=== PATIENT | male | born 1995 | race Caucasian/White ===

== ENCOUNTER 2018-07-17 11:41 | Day surgery (SDC) | payer BC ==
[2018-07-16 12:52] VITALS: BMI 34.4
[~2018-07-17 11:41] MED LIST: DEXAMETHASONE SOD PHOSPHATE 10 MG/ML 1 ML VIAL IV ONE; HYDROmorphone 1 MG/ML 1 ML SYRINGE IVP PRN; LIDOCAINE 1% 20 ML VIAL (10MG/ML) FOR IV START INTRADERMA PRN; MIDAZOLAM 2 MG/2 ML VIAL IV PRN; ONDANSETRON 4 MG/2 ML VIAL IVP ONE; SCOPOLAMINE 1.5MG/72HR PATCH TRANSDERM ONE; ceFAZolin IN SWFI 2 GM/20 ML SYRINGE IVP ONE
[2018-07-17] MEDS: LACTATED RINGERS 1,000 ML IV SCH ×2 (12:13→12:55)
[2018-07-17] MEDS ORDERED: fentaNYL (PF) 50 MCG/ML 2 ML AMP ONE (12:56)
[2018-07-17] MEDS ORDERED: PROPOFOL 10 MG/ML 20 ML VIAL IV ONE (12:56)
[2018-07-17] MEDS ORDERED: SUCCINYLCHOLINE CHLORIDE 100 MG/5 ML SYR IV ONE (12:56)
[2018-07-17] MEDS ORDERED: GLYCOPYRROLATE 0.2 MG/ML 2 ML VIAL ONE (12:56)
[2018-07-17] MEDS ORDERED: KETOROLAC 30 MG/ML 1 ML VIAL ONE (12:56)
[2018-07-17] MEDS ORDERED: LIDOCAINE 1% INJ 10MG/ML (20 ML MDV) ONE (12:56)
[2018-07-17] MEDS ORDERED: ROCURONIUM BROMIDE 10 MG/ML 10 ML VIAL IV ONE (12:56)
[2018-07-17] MEDS ORDERED: NEOSTIGMINE 1 MG/ML 10 ML VIAL ONE (12:56)
[2018-07-17] MEDS ORDERED: MIDAZOLAM 2 MG/2 ML VIAL ONE (12:56)
[2018-07-17] MEDS ORDERED: BUPIVACAIN-EPI 0.25%-1:200,000 30 ML VIAL SQ ONE ×2 (13:14)
[2018-07-17] MEDS ORDERED: LACTATED RINGERS 1,000 ML IV ONE (14:08)
[2018-07-17] MEDS ORDERED: HYDROcodone/APAP 5-325MG 1 EACH TAB PO PRN (14:12)
[2018-07-17] MEDS ORDERED: ONDANSETRON ODT 4 MG TAB PO PRN (14:16)
--- NOTE | 2018-07-17 14:27 | P.OP ---
Date of Procedure: 07/17/18 Preoperative Diagnosis: Cholelithiasis, nausea vomiting, diarrhea Postoperative Diagnosis: Cholelithiasis with acute on chronic cholecystitis, nausea and vomiting, diarrhea Anesthesia: TONG Surgeon: Laine Ramirez Estimated Blood Loss (ml): 50 Pathology: other (Gallbladder) Condition: stable Disposition: PACU Indications for Procedure: Patient presented with acute abdominal pain, nausea, vomiting. Ultrasound showed cholelithiasis. Description of Procedure: The patient's taken the operative suite were spent prepped and draped in the usual sterile manner under general endotracheal anesthetic. An infraumbilical incision was made and a varies needle was placed into the abdominal cavity. Pneumoperitoneum was established with CO2 gas. Sites are chosen for accessory trochars needs are placed through small skin incisions. The gallbladder is noted to be distended with an edematous wall. Green's pouch was able to be grasped after this type having a gallstone back into the body of the gallbladder. The cystic artery and cystic duct were then dissected free. They' re triply clipped and cut. The gallbladder is then dissected free from the liver bed. Small bleeding points were controlled with electrocautery. The gallbladder is placed into a specimen retrieval bag. The liver bed is then examined and noted to be hemostatic. The excess irrigant is suctioned out. The pneumoperitoneum was released. The trochars were removed. The fascia at the umbilicus had to be extended along with the skin incision to allow removal of the gallbladder was very distended and there were 2 very large gallstones along with some smaller ones. The fascia at the umbilicus was then closed with #1 Vicryl. The skin incisions were closed with 4-0 Vicryl in a subcuticular manner. Steri-Strips and dressings were applied. He tolerated the procedure without difficulty and was taken recovery room in satisfactory condition. According to or personnel, all counts were correct. Plan - Discharge Summary New Discharge Prescriptions: New HYDROcodone/APAP 5-325MG [[place] 5-325] 1 - 2 tab PO Q4H PRN #15 tab PRN Reason: Pain No Action Omeprazole [PriLOSEC] 20 mg PO AC-BRKFST Ondansetron Odt [Zofran ODT] 4 mg PO Q8HR PRN #20 tab PRN Reason: Nausea Discharge Medication List Omeprazole [PriLOSEC] 20 mg PO AC-BRKFST 07/15/18 [History] Ondansetron Odt [Zofran ODT] 4 mg PO Q8HR PRN #20 tab 07/15/18 [Rx] HYDROcodone/APAP 5-325MG [[place] 5-325] 1 - 2 tab PO Q4H PRN #15 tab 07/17/18 [Rx ] Follow up Appointment(s)/Referral(s): Laine Ramirez DO [Doctor of Osteopathic Medicine] - 2 Weeks Activity/Diet/Wound Care/Special Instructions: Ice to the incision for 24-48 hours. On Sunday the dressing may be removed then you may shower. Use a light dressing on the incision if there is drainage or they are rubbing on your clothing. Follow a low-fat diet for 2 months. No [address] while taking pain medications. Expect some bruising by the bellybutton. You may take ibuprofen or Naprosyn in addition to or instead of the pain pills. Do not take additional Tylenol with the pain pills. Call if you develop fevers, chills, nausea, vomiting, wound concerns. See me in the office in 2 weeks.
[2018-07-17 14:31] VITALS: TEMP 98.2
[2018-07-17 15:21] VITALS: RESP 16
[2018-07-17] MEDS ORDERED: HYDROcodone/APAP 5-325MG 1 EACH TAB PO ONE (16:20)
[2018-07-17 17:54] VITALS: BP 144/83; PULSE 80
[2018-07-18] MEDS ORDERED: NON-FORMULARY DRUG (Omeprazole 20 MG) PO SCH (07:30)
== END 2018-07-17 17:35 | disposition home or self-care (01) ==
LOC: OR 11:41
PROVIDERS: ATTEND Surgery
DX: K80.12 Calculus of gallbladder with acute and chronic cholecystitis without obstruction (principal); K21.9 Gastro-esophageal reflux disease without esophagitis; Z79.899 Other long term (current) drug therapy
CPT/HCPCS: 47562; 88304; J2250; J1100; J2710; J2405; J2001; J3010; J1885; J0330; J2704; J0690

== ENCOUNTER 2020-06-16 08:34 | Emergency (ER) | payer BC, OTHER ==
[2020-06-16 08:40] VITALS: BP 131/81; PULSE 121; RESP 18; TEMP 98.2
[2020-06-16] MEDS ORDERED: IBUPROFEN 600 MG TAB PO STA (08:46)
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
--- NOTE | 2020-06-16 09:22 | XR ---
EXAMINATION TYPE: XR hand complete LT DATE OF EXAM: 06/16/2020 CLINICAL HISTORY: pain TECHNIQUE: Frontal, lateral and oblique images of the left hand are obtained. COMPARISON: None. FINDINGS: There is no acute fracture/dislocation evident. The joint spaces appear within normal limi ts. The overlying soft tissue appears unremarkable. IMPRESSION: There is no acute fracture or dislocation. ICD 10 NO FRACTURE, INITIAL EVALUATION
== END 2020-06-16 09:26 | disposition home or self-care (01) ==
LOC: EC 08:34
DX: S00.03XA Contusion of scalp, initial encounter (principal); S60.212A Contusion of left wrist, initial encounter; Y04.0XXA Assault by unarmed brawl or fight, initial encounter; Y92.69 Other specified industrial and construction area as the place of occurrence of the external cause; Y99.0 Civilian activity done for income or pay
CPT/HCPCS: 99284

== ENCOUNTER → 2020-07-29 | Outpatient (CLI) | payer SELFPAY | END | disposition home or self-care (01) | LOC: LABMAIN 10:00 | PROVIDERS: ATTEND Physician Assistant | DX: R05 Cough (principal); R50.9 Fever, unspecified | CPT/HCPCS: 87635 ==

== ENCOUNTER 2022-05-13 12:25 | Emergency (ER) | payer OTHER ==
[2022-05-13 12:29] VITALS: TEMP 98.4
--- NOTE | 2022-05-13 13:08 | XR ---
EXAMINATION TYPE: XR ankle complete LT DATE OF EXAM: 05/13/2022 12:44 PM INDICATION: Patient age:Male; 27 years old; Reason for study: pain; PHH. COMPARISON: None TECHNIQUE: The left ankle is imaged in frontal, lateral and oblique projections. FINDINGS: Small osseous donna off the medial malleolus. Soft tissue swelling around the ankle. IMPRESSION: Suspected small avulsion fracture off the medial malleolus with associated soft tissue swelling. No a dditional fractures identified..
[2022-05-13] MEDS ORDERED: HYDROcodone/APAP 5-325MG 1 EACH TAB PO STA (13:24)
--- NOTE | 2022-05-13 13:27 | ED ---
Lower Extremity Injury HPI - General Chief Complaint: Extremity Injury, Lower Stated Complaint: ankle injury,fell down stairs Time Seen by Provider: 05/13/22 12:32 Source: patient, RN notes reviewed Mode of arrival: wheelchair Limitations: no limitations - History of Present Illness Initial Comments: 27-year-old male presents emergency Department with chief complaint of left ankle injury. Patient states he was walking down steps in the hospital in which she slipped and twisted his ankle he states he didn't bounce on his back but has not went of back, neck or head pain. Patient complains of pain and swelling to the left ankle states his pain in the medial and lateral aspect. - Related Data Home Medications Medication Instructions Recorded Confirmed Omeprazole [PriLOSEC] 20 mg PO AC-BRKFST 07/15/18 07/17/18 Previous Rx's Medication Instructions Recorded Ondansetron Odt [Zofran ODT] 4 mg PO Q8HR PRN #20 tab 07/15/18 HYDROcodone/APAP 5-325MG [[place] 1 - 2 tab PO Q4H PRN #15 tab 07/17/18 5-325] HYDROcodone/APAP 5-325MG [[place] 5] 1 each PO Q6HR PRN #12 tab 05/13/22 Allergies Allergy/AdvReac Type Severity Reaction Status Date / Time No Known Allergies Allergy Verified 05/13/22 12:26 Review of Systems ROS Statement: Those systems with pertinent positive or pertinent negative responses have been documented in the HPI. ROS Other: All systems not noted in ROS Statement are negative. Past Medical History Past Medical History: No Reported History Additional Past Medical History / Comment(s): gallstones History of Any Multi-Drug Resistant Organisms: None Reported Past Surgical History: No Surgical Hx Reported Additional Past Surgical History / Comment(s): wisdom teeth removed Past Anesthesia/Blood Transfusion Reactions: No Reported Reaction Past Psychological History: No Psychological Hx Reported Smoking Status: Never smoker Past Alcohol Use History: Occasional Past Drug Use History: None Reported - Past Family History Mother Family Medical History: No Reported History General Exam Limitations: no limitations General appearance: alert, in no apparent distress Head exam: Present: atraumatic, normocephalic, normal inspection Respiratory exam: Present: normal lung sounds bilaterally. Absent: respiratory distress, wheezes, rales, rhonchi, stridor Cardiovascular Exam: Present: regular rate, normal rhythm, normal heart sounds. Absent: systolic murmur, diastolic murmur, rubs, gallop, clicks Extremities exam: Present: other (Left ankle there is moderate swelling lateral malleolar region with tenderness to medial and lateral no foot tenderness no proximal tib-fib tenderness) Neurological exam: Present: alert Skin exam: Present: warm, dry, intact, normal color. Absent: rash Course Vital Signs 05/13/22 05/13/22 12:26 13:48 Temperature 98.4 F Pulse Rate 93 88 Respiratory 16 18 Rate Blood Pressure 145/92 145/87 O2 Sat by Pulse 98 99 Oximetry Medical Decision Making - Medical Decision Making X ray shows evidence of medial malleolus fracture patient was splinted and will follow-up with orthopedics patient given crutches. Disposition Clinical Impression: Fracture of medial malleolus, left, closed Disposition: HOME SELF-CARE Condition: Stable Instructions (If sedation given, give patient instructions): Ankle Fracture (ED) Additional Instructions: Please return to the Emergency Department if symptoms worsen or any other concerns. Prescriptions: HYDROcodone/APAP 5-325MG [[place] 5] 1 each PO Q6HR PRN #12 tab PRN Reason: Pain Is patient prescribed a controlled substance at d/c from ED?: Yes When asked, does pt state using other controlled substances?: No If prescribed controlled substance>3 days was MAPS reviewed?: Prescribed <3 Days If opioid is for acute pain is fill amount 7 days or less?: Yes If Rx opioid, was Start Talking consent form obtained?: Yes Referrals: Edy Stevens MD [Primary Care Provider] - 1-2 days Mitch Martinez MD [REFERRING] - 1-2 days Lawrence Stevens MD [STAFF PHYSICIAN] - 1-2 days
[2022-05-13 13:50] VITALS: BP 145/87; PULSE 88; RESP 18
== END 2022-05-13 13:48 | disposition home or self-care (01) ==
LOC: EC 12:25
DX: S82.52XA Displaced fracture of medial malleolus of left tibia, initial encounter for closed fracture (principal); W10.9XXA Fall (on) (from) unspecified stairs and steps, initial encounter; Y92.239 Unspecified place in hospital as the place of occurrence of the external cause; Y93.01 Activity, walking, marching and hiking
CPT/HCPCS: 99283

== ENCOUNTER 2022-05-18 17:00 | Emergency (ER) | payer OTHER ==
[2022-05-18] MEDS ORDERED: APIXABAN 5 MG TAB PO STA (18:24)
[2022-05-18 18:33] VITALS: BP 152/91; PULSE 96; RESP 18; TEMP 97.9
--- NOTE | 2022-05-18 18:40 | ED ---
General Adult HPI - General Chief complaint: Extremity Injury, Lower Stated complaint: DVT in L leg-Sent by lab Time Seen by Provider: 05/18/22 18:03 Source: patient Mode of arrival: ambulatory Limitations: no limitations - History of Present Illness Initial comments: Patient is a 27 -year-old male presents to the emergency department with a chief complaint of left calf pain. Patient is currently in a walking boot for left ankle fracture that occurred at 05/13. Patient's calf pain started yesterday. He noticed some swelling today. For the most part patient has been sedentary since the injury. He denies history of DVT or PE. Denies chest pain and shortness of breath. Patient had outpatient ultrasound performed which showed DVT in the left mid and lower popliteal vein. - Related Data Home Medications Medication Instructions Recorded Confirmed Omeprazole [PriLOSEC] 20 mg PO AC-BRKFST 07/15/18 07/17/18 Previous Rx's Medication Instructions Recorded Ondansetron Odt [Zofran ODT] 4 mg PO Q8HR PRN #20 tab 07/15/18 HYDROcodone/APAP 5-325MG [[place] 1 - 2 tab PO Q4H PRN #15 tab 07/17/18 5-325] HYDROcodone/APAP 5-325MG [[place] 5] 1 each PO Q6HR PRN #12 tab 05/13/22 Apixaban [Eliquis Starter Pack 5 - 10 mg PO DIRECTED 30 Days 05/18/22 (for VTE)] #1 each Ketorolac [Toradol] 10 mg PO Q8HR PRN 7 Days #21 tab 05/18/22 Allergies Allergy/AdvReac Type Severity Reaction Status Date / Time No Known Allergies Allergy Verified 05/18/22 18:33 Review of Systems ROS Statement: Those systems with pertinent positive or pertinent negative responses have been documented in the HPI. ROS Other: All systems not noted in ROS Statement are negative. Past Medical History Past Medical History: No Reported History Additional Past Medical History / Comment(s): gallstones History of Any Multi-Drug Resistant Organisms: None Reported Past Surgical History: No Surgical Hx Reported Additional Past Surgical History / Comment(s): wisdom teeth removed Past Anesthesia/Blood Transfusion Reactions: No Reported Reaction Past Psychological History: No Psychological Hx Reported Smoking Status: Never smoker Past Alcohol Use History: Occasional Past Drug Use History: None Reported - Past Family History Mother Family Medical History: No Reported History General Exam Limitations: no limitations General appearance: alert, in no apparent distress Eye exam: Present: normal appearance, PERRL, EOMI. Absent: scleral icterus, conjunctival injection, periorbital swelling Respiratory exam: Present: normal lung sounds bilaterally. Absent: respiratory distress, wheezes, rales, rhonchi, stridor Cardiovascular Exam: Present: regular rate, normal rhythm, normal heart sounds. Absent: systolic murmur, diastolic murmur, rubs, gallop, clicks Extremities exam: Present: calf tenderness (left with mild swelling. positive kassi sign ) Neurological exam: Present: alert, oriented X3, CN II-XII intact Psychiatric exam: Present: normal affect, normal mood Skin exam: Present: warm, dry, intact, normal color. Absent: rash Course Vital Signs 05/18/22 18:25 Temperature 97.9 F Pulse Rate 96 Respiratory 18 Rate Blood Pressure 152/91 O2 Sat by Pulse 98 Oximetry Medical Decision Making - Medical Decision Making This is a 27-year-old male who presents with left popliteal DVT. Patient well- appearing and in no apparent distress. Skin is normal color with mild swelling. Patient will be discharged with Eliquis starter pack. Patient given first dose in the emergency department. Return parameters discussed. Patient to follow up with S since he doesn't have PCP. Dr. Vallejo is my attending. Disposition Clinical Impression: Deep vein thrombosis (DVT) of left lower extremity Disposition: HOME SELF-CARE Condition: Good Instructions (If sedation given, give patient instructions): Deep Vein Thrombosis (ED) Additional Instructions: Take medication as directed. Follow-up with [facility]. Return to the emergency department if you experience new or worsening, or concerning symptoms, including but not limited to, chest pain, shortness breath, increased pain. Prescriptions: Apixaban [Eliquis Starter Pack (for VTE)] 5 - 10 mg PO DIRECTED 30 Days #1 each Ketorolac [Toradol] 10 mg PO Q8HR PRN 7 Days #21 tab PRN Reason: Pain Is patient prescribed a controlled substance at d/c from ED?: No Referrals: None,Stated [Primary Care Provider] - 1-2 days Time of Disposition: 18:40
== END 2022-05-18 19:22 | disposition home or self-care (01) ==
LOC: EC 17:00
DX: I82.402 Acute embolism and thrombosis of unspecified deep veins of left lower extremity (principal)
CPT/HCPCS: 99282; 99283

== ENCOUNTER → 2022-05-18 | Outpatient (CLI) | payer OTHER ==
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
== END | disposition home or self-care (01) ==
LOC: RADUSWWP 16:10
PROVIDERS: ATTEND Podiatrist
DX: M25.572 Pain in left ankle and joints of left foot (principal)

== ENCOUNTER 2022-12-22 16:42 | Emergency (ER) | payer OTHER ==
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
--- NOTE | 2022-12-22 18:16 | XR ---
EXAMINATION TYPE: XR shoulder complete LT DATE OF EXAM: 12/22/2022 CLINICAL HISTORY: pain COMPARISON: NONE TECHNIQUE: Three views of the left shoulder are obtained. FINDINGS: There is no acute fracture/dislocation evident. The acromioclavicular and glenohumeral janette int spaces appear within normal limits. The visualized ribs are intact and unremarkable. IMPRESSION: 1. There is no acute fracture or dislocation. ICD 10 NO FRACTURE, INITIAL EVALUATION
--- NOTE | 2022-12-22 18:16 | XR ---
EXAMINATION TYPE: XR elbow complete LT DATE OF EXAM: 12/22/2022 CLINICAL HISTORY: pain TECHNIQUE: Frontal, lateral and oblique images of the left elbow are obtained. COMPARISON: None. FINDINGS: There is no acute fracture/dislocation evident of the elbow. No abnormal fat pad signs ar e seen. The overlying soft tissue appears unremarkable. IMPRESSION: There is no acute fracture or dislocation of the elbow. ICD 10 NO FRACTURE, INITIAL EVALUATION
--- NOTE | 2022-12-22 18:17 | XR ---
EXAMINATION TYPE: XR forearm LT DATE OF EXAM: 12/22/2022 CLINICAL HISTORY: pain TECHNIQUE: Frontal and lateral images of the left forearm are obtained. COMPARISON: None. FINDINGS: There is no acute fracture/dislocation evident. The joint spaces appear within normal limi ts. The overlying soft tissue appears unremarkable. IMPRESSION: There is no acute fracture or dislocation. ICD 10 NO FRACTURE, INITIAL EVALUATION
[2022-12-22] MEDS ORDERED: IBUPROFEN 800 MG TAB PO STA (18:37)
[2022-12-22 18:51] VITALS: BP 145/87; PULSE 74; RESP 16; TEMP 98
== END 2022-12-22 18:51 | disposition home or self-care (01) ==
LOC: EC 16:42
DX: M79.632 Pain in left forearm (principal); V89.2XXA Person injured in unspecified motor-vehicle accident, traffic, initial encounter
CPT/HCPCS: 99284

== ENCOUNTER 2025-03-27 10:44 | Emergency (ER) | payer SELFPAY ==
[2025-03-27 11:03] VITALS: TEMP 98.1
--- NOTE | 2025-03-27 11:10 | ED ---
Chest Pain HPI - General Chief Complaint: Chest Pain Stated Complaint: Chest pain Time Seen by Provider: 03/27/25 11:03 Source: patient, RN notes reviewed Mode of arrival: ambulatory Limitations: no limitations - History of Present Illness Initial Comments: This is a 29 year old male who presents to the emergency department for chest pain. States that he woke up this morning with an aching in his epigastric/lower chest region. Pain has since persisted. Denies any radiation of pain. Denies any shortness of breath. States that this feels different from heartburn. Denies any history of similar pain in the past. Denies any personal or family history of cardiac issues. MD Complaint: chest pain - Related Data Home Medications Medication Instructions Recorded Confirmed Omeprazole [PriLOSEC] 20 mg PO AC-BRKFST 07/15/18 07/17/18 Previous Rx's Medication Instructions Recorded Ondansetron Odt [Zofran ODT] 4 mg PO Q8HR PRN #20 tab 07/15/18 HYDROcodone/APAP 5-325MG [[place] 1 - 2 tab PO Q4H PRN #15 tab 07/17/18 5-325] HYDROcodone/APAP 5-325MG [[place] 5] 1 each PO Q6HR PRN #12 tab 05/13/22 Apixaban [Eliquis Starter Pack 5 - 10 mg PO DIRECTED 30 Days 05/18/22 (for VTE)] #1 each Ketorolac [Toradol] 10 mg PO Q8HR PRN 7 Days #21 tab 05/18/22 Azithromycin [Zithromax Z Pack] 0 tab PO DIRECTED #6 tab 10/31/22 Allergies Allergy/AdvReac Type Severity Reaction Status Date / Time No Known Allergies Allergy Verified 03/27/25 11:02 Review of Systems ROS Statement: Those systems with pertinent positive or pertinent negative responses have been documented in the HPI. ROS Other: All systems not noted in ROS Statement are negative. Past Medical History Past Medical History: No Reported History Additional Past Medical History / Comment(s): gallstones History of Any Multi-Drug Resistant Organisms: None Reported Past Surgical History: Cholecystectomy Additional Past Surgical History / Comment(s): wisdom teeth removed, left ankle Past Anesthesia/Blood Transfusion Reactions: No Reported Reaction Past Psychological History: No Psychological Hx Reported Smoking Status: Never smoker Past Alcohol Use History: Occasional Past Drug Use History: None Reported - Past Family History Mother Family Medical History: No Reported History General Exam Limitations: no limitations General appearance: alert, in no apparent distress Head exam: Present: atraumatic, normocephalic, normal inspection Respiratory exam: Present: normal lung sounds bilaterally. Absent: respiratory distress, wheezes, rales, rhonchi, stridor Cardiovascular Exam: Present: regular rate, normal rhythm GI/Abdominal exam: Present: soft. Absent: distended, tenderness Neurological exam: Present: alert, oriented X3, CN II-XII intact Psychiatric exam: Present: normal affect, normal mood Skin exam: Present: warm, dry, intact, normal color. Absent: rash Course Vital Signs 03/27/25 03/27/25 03/27/25 10:58 12:02 14:36 Temperature 98.1 F Pulse Rate 86 72 70 Respiratory 22 20 18 Rate Blood Pressure 143/97 138/93 144/91 O2 Sat by Pulse 97 97 97 Oximetry Chest Pain MDM - [facility] This is a 29 year old male who presents to the emergency department for chest pain. Was pt. sent in by a medical professional or institution? @ -No Did you speak to anyone other than the patient for history? @ -No Did you review nursing and triage notes? @ -Yes, and I agree, it is accurate with regards to the patient's symptoms. Were old charts reviewed? @ -No Differential Diagnosis? @ -Differential Chest Pain: Stable Angina, Unstable Angina, STEMI, NSTEMI Aortic Dissection, Pneumothorax, Musculoskeletal, Esophageal Spasm GERD, Cholecystitis, Pancreatitis, Zoster, this is not meant to be an all-inclusive list. EKG interpreted by me (3pts min.)? @ -EKG interpreted by me demonstrating the following: Sinus rhythm. Ventricular rate 75 bpm, [place] interval 156 ms, QRS duration 92 ms, QTc 390 ms. X-rays interpreted by me (1pt min.)? @ -Chest x-ray obtained, my interpretation identifies no localized consolidations or infiltrates. CT interpreted by me (1pt min.)? @ -Not obtained U/S interpreted by me (1pt. min.)? @ -Not obtained What testing was considered but not performed? (CT, X-rays, U/S, labs)? Why? @ -None What meds were considered but not given? Why? @ -None Did you discuss the management of the patient with other professionals? @ -No Did you reconcile home meds? @ -No Was smoking cessation discussed for >3mins.? @ -No Was critical care preformed (if so, how long)? @ -No Were there social determinants of health that impacted care today? How? (Homelessness, low income, unemployed, alcoholism, drug addiction, transportation, low edu. Level, literacy, decrease access to med. care, [facility], rehab)? @ -No Was there de-escalation of care discussed even if they declined? (Discuss DNR or withdrawal of care, Hospice)? @ -No What co-morbidities impacted this encounter? (DM, HTN, Smoking, COPD, CAD, Cancer, CVA, Hep., AIDS, mental health diagnosis, sleep apnea, morbid obesity)? @ -None Was patient admitted / discharged? @ -Discharged. Lab work unremarkable. Troponin and D-dimer negative. We did a trial of aspirin and nitroglycerin, however it was not effective. Toradol administered with some improvement. Patient has a low cardiac score of 1. Troponin repeated at the 3-hour bernie and remained negative. Given 2 negative troponins with low cardiac score and otherwise unremarkable medical history, advised that he can be discharged home. Advised to try [id number] ibuprofen and Tylenol to see if that offers any benefit or [id number] antacids. He is also advised to have close follow-up with his PCP in the next couple of days for reevaluation. Patient discharged home in stable condition. Case discussed with ED attending Dr. Garduno. Return precautions reviewed in depth, the patient is instructed to return to the emergency department with any new, worsening, or concerning symptoms. Patient verbalized understanding. Undiagnosed new problem with uncertain prognosis? @ -None Drug Therapy requiring intensive monitoring for toxicity (Heparin, Nitro, Insulin, Cardizem)? @ -None Were any procedures done? @ -None Diagnosis/symptom? @ -Chest pain Acute, or Chronic, or Acute on Chronic? @ -Acute Uncomplicated (without systemic symptoms) or Complicated (systemic symptoms)? @ -Uncomplicated Side effects of treatment? @ -None Exacerbation, Progression, or Severe Exacerbation] @ -Not applicable Poses a threat to life or bodily function? @ -No Disposition Clinical Impression: Chest pain Disposition: HOME SELF-CARE Instructions (If sedation given, give patient instructions): Chest Pain (ED), Noncardiac Chest Pain (ED), Chest Wall Pain (ED) Additional Instructions: Return to the emergency department with any new, worsening, or concerning symptoms. Alternate with ibuprofen and Tylenol as needed for pain relief. You can also try an [id number] antacid medication to see if that offers any benefit. Make sure you follow-up with your primary care provider in the next couple of days for reevaluation. Is patient prescribed a controlled substance at d/c from ED?: No Referrals: Laine Lara MD [Primary Care Provider] - 1-2 days Time of Disposition: 16:21
[2025-03-27] MEDS: ASPIRIN 81 MG PO STA (11:16)
[2025-03-27] MEDS: SODIUM CHLORIDE 0.9% 1,000 ML IV STA (11:18)
[2025-03-27] MEDS: NITROGLYCERIN SL TABS 0.4 MG TAB SUBLINGUAL STA (11:19)
[2025-03-27] MEDS: KETOROLAC 15 MG/ML 1 ML VIAL IVP STA (11:34)
[2025-03-27 11:37] LABS: Basophils # (A) 0.06 10*3/uL (0.00-0.10); Basophils % (A) 0.8 %; Eosinophils # (A) 0.30 10*3/uL (0.04-0.35); Eosinophils % (A) 4.0 %; HCT 41.6 % (39.6-50.0); HGB 15.0 g/dL (13.0-17.0); Lymphocytes # (A) 2.45 10*3/uL (0.90-5.00); Lymphocytes % (A) 32.7 %; MCH 30.0 pg (27.0-32.0); MCHC 36.1 g/dL (32.0-37.0); MCV 83.2 fL (80.0-97.0); Monocytes # (A) 0.57 10*3/uL (0.20-1.00); Monocytes % (A) 7.6 %; Neutrophils # (A) 4.10 10*3/uL (1.80-7.70); Neutrophils % (A) 54.6 %; Platelet Count 298 10*3/uL (140-440); RBC 5.00 10*6/uL (4.40-5.60); RDW 12.6 % (11.5-14.5); WBC 7.50 10*3/uL (4.50-10.00)
[2025-03-27 11:56] LABS: ALT 47 U/L (4-49); AST 35 U/L (17-59); African American GFR (CKD) >90 (>60 ml/min/1.73 sqM); Albumin 4.9 g/dL (3.5-5.0); Alkaline Phosphatase 54 U/L (38-126); Anion Gap 10 mmol/L; Blood Urea Nitrogen 11 mg/dL (9-20); Calcium 9.5 mg/dL (8.4-10.2); Carbon Dioxide 25 mmol/L (22-30); Chloride 107 mmol/L (98-107); Glucose 100 mg/dL (74-99); Lipase 52 U/L (23-300); Magnesium 1.8 mg/dL (1.6-2.3); Non-African American GFR(CKD) >90 (>60 ml/min/1.73 sqM); Potassium 4.4 mmol/L (3.5-5.1); Sodium 142 mmol/L (137-145); Total Protein 7.9 g/dL (6.3-8.2)
[2025-03-27 12:06] LABS: INR 0.9 (<1.2); Partial Thromboplastin Time 24.5 sec (22.0-30.0); Prothrombin Time 10.4 sec (10.0-12.5)
--- NOTE | 2025-03-27 12:21 | XR ---
EXAMINATION TYPE: XR chest 2V DATE OF EXAM: 03/27/2025 11:54 AM COMPARISON: None CLINICAL INDICATION: Male, 29 years old with history of Chest Pain TECHNIQUE: PA and lateral views FINDINGS: The cardiomediastinal silhouette, aorta, and pulmonary vasculature are within normal limits. Lungs an d pleural spaces are clear. IMPRESSION: No acute cardiopulmonary process. [facility], Workstation: [facility], 03/27/2025 12:19 PM
[2025-03-27 16:33] VITALS: BP 153/97; PULSE 87; RESP 16
== END 2025-03-27 16:33 | disposition home or self-care (01) ==
LOC: EC 10:44
DX: R07.9 Chest pain, unspecified (principal)
CPT/HCPCS: 36415; 93005; 85379; 80053; 83690; 83735; 84484; 85025; 85610; 85730; 71046; 99285; 96374; 96361; J1885

== ENCOUNTER 2025-03-28 21:09 | Emergency (ER) | payer OTHER ==
[2025-03-28 21:26] VITALS: RESP 18
[2025-03-28] MEDS: FLUORESCEIN STRIPS 1 MG STRIP LEFT EYE ONE (22:43)
[2025-03-28] MEDS: PROPARACAINE 0.5% OPHTH DROPS 15 ML BTL LEFT EYE STA (22:43)
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
--- NOTE | 2025-03-29 00:27 | XR ---
EXAM: XR Right Hand Complete, 3 or More Views CLINICAL HISTORY: ITS.REASON XR Reason: 1st digit pain TECHNIQUE: Frontal, lateral and oblique views of the right hand. COMPARISON: No previous studies. FINDINGS: Bones/joints: Unremarkable. Normal anatomic alignment. No acute fracture or dislocation. Soft tissues: Soft tissues are unremarkable. No radiopaque foreign body. IMPRESSION: No acute fracture or dislocation.
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
[2025-03-29] MEDS: AMOXIC-POT CLAV 875-125MG 1 EACH TAB PO STA (01:41)
[2025-03-29 02:11] VITALS: BP 147/89; PULSE 84; TEMP 98
== END 2025-03-29 02:10 | disposition home or self-care (01) ==
LOC: EC 21:09
DX: S02.85XA Fracture of orbit, unspecified, initial encounter for closed fracture (principal); Y04.0XXA Assault by unarmed brawl or fight, initial encounter
CPT/HCPCS: 70486; 99284